=== PATIENT | male | born 1970 | race Caucasian/White ===

== ENCOUNTER → 2017-04-03 | Outpatient (CLI) | payer BC ==
[~2017-04-03] MED LIST: ATIVAN PO; BENADRYL25 MG PO; BENTYL10 MG DOB; BUSPAR PO; CARAFATE1 G PO; DEXILANT60 MG PO; LEXAPRO PO; LOMOTIL TABLET1 TAB PO; PEPCID AC20 M2 PO; PREDNISONE PO; PRILOSEC20 M1 PO; PRILOSEC40 MG PO; REGLAN10 MG PO; TYLENOL #3 PO; ZOFRAN ODT4 MG PO; ZOFRANODT PO
--- NOTE | ~2017-04-03 | CT2 ---
[facility] A Service of [facility] RADIOLOGY TEXT RESULTS PATIENT: MARISABEL ISAACS LOCATION: [facility] : 72 UNIT #: [id number] AGE: [address]: ANTONINA LEYVA APRN SEX: M ORDER DR: [id number] [facility] [address] [place], [place] [address] [id number] O MR#: [id number] Acc #: [id number] NAME: MARISABEL ISAACS : 1970 SEX: M STUDY DATE/TIME: 04/03/2017 11:42 UNIT: [facility]AT ROOM: STUDY DESCRIPTION: CT Abd and Pelv W Cont Attending Physician: Antonina Leyva Aprn Referring Physician: Antonina Leyva Aprn Ordering Physician: Emeli Leyva M.D. Primary Care Physician: Mauricio Triana M.D. MEDICAL IMAGING REPORT This report is preliminary unless electronic signature is present EXAM CT abdomen and pelvis with contrast. INDICATION Left upper quadrant abdominal pain with intermittent nausea for the past 6 months. PROCEDURE Contrast-enhanced CT of the abdomen and pelvis. COMPARISON 05/25/[address] exam was performed with one or more of the following radiation dose reduction techniques: automatic exposure control, adjustment of mA and/or kV according to patient size, and iterative reconstruction. FINDINGS ABDOMEN WITH CONTRAST: The included lung bases are clear. There are 2 subcentimeter cysts in the liver. The spleen, adrenal glands, pancreas are unremarkable. Previous cholecystectomy. 2.5 cm probable cyst in the right kidney is slightly larger, measures slightly greater than simple fluid. The bowel loops nondilated, appendix normal. PELVIS WITH CONTRAST: No pelvic mass or fluid. No aggressive appearing bone lesion. IMPRESSION No acute findings. No finding to explain the patient's abdominal pain. Indeterminate, but probable 2.5 cm cyst in the right kidney is minimally [facility] A Service of [facility] RADIOLOGY TEXT RESULTS PATIENT: MARISABEL ISAACS LOCATION: [facility] : 72 UNIT #: [id number] AGE: [address]: ANTONINA LEYVA APRN SEX: M ORDER DR: larger than on 2013 study. Consider a renal ultrasound to exclude the possibility of a solid renal mass. Dictated by... Nima De Leon M.D. THIS IS AN ELECTRONICALLY VERIFIED REPORT Nima De Leon M.D. at 04/04/2017 7:07 AM [place]/daija TD: 04/03/2017 15:01 JOB #: [id number] MEDICAL IMAGING REPORT Page 1 of 1 COPY
== END | disposition home or self-care (01) ==
LOC: CCAT 10:02
DX: R10.12 Left upper quadrant pain (principal)
CPT/HCPCS: 74177; Q9967

== ENCOUNTER 2017-06-19 20:02 | Emergency (ER) | payer BC ==
[~2017-06-19] VITALS: Ht 175.3 cm; Wt 110.7 kg
[~2017-06-19 20:02] MED LIST changes: -BENADRYL25 MG PO
[2017-06-19] MEDS ORDERED: BENADRYL25 MG PO (20:53)
[2017-06-19] MEDS ORDERED: PREDNISONE PO (20:55)
== END 2017-06-19 20:52 | disposition home or self-care (01) ==
LOC: SED 20:02
DX: T63.441A Toxic effect of venom of bees, accidental (unintentional), initial encounter (principal); F41.9 Anxiety disorder, unspecified; K21.9 Gastro-esophageal reflux disease without esophagitis; Z79.899 Other long term (current) drug therapy
CPT/HCPCS: 99284